=== PATIENT | female | born 1960 | race Caucasian/White ===

== ENCOUNTER 2018-04-07 13:21 | Emergency (ER) | payer MEDICARE, OTHER ==
[2018-04-07] MEDS ORDERED: Bacitracin Zinc 1 Packet ONE (14:26)
--- NOTE | 2018-04-07 14:33 | RAD ---
RIGHT FOREARM 2 VIEWS: HISTORY: Right arm injury. FINDINGS: Transverse fracture with minimal medial displacement of distal fragment involves the distal ulnar sha ft. Radius is intact. Mild degenerative changes of the elbow and wrist. IMPRESSION: Minimally displaced distal right ulnar shaft fracture. POS: REESE
== END 2018-04-07 15:20 | disposition home or self-care (01) ==
LOC: SCSER 13:21
DX: S52.601A Unspecified fracture of lower end of right ulna, initial encounter for closed fracture (principal); E11.9 Type 2 diabetes mellitus without complications; I10 Essential (primary) hypertension; E78.5 Hyperlipidemia, unspecified; F32.9 Major depressive disorder, single episode, unspecified; W19.XXXA Unspecified fall, initial encounter
CPT/HCPCS: 29125

== ENCOUNTER 2019-06-30 22:50 | Emergency (ER) | payer MEDICARE ==
[2019-06-30] MEDS ORDERED: Ketorolac Tromethamine 30 MG/ML VIAL ONE (23:33)
--- NOTE | 2019-06-30 23:40 | CT ---
CT Facial Bones WO Con HISTORY: Left-sided facial injury. COMPARISON: None. FINDINGS: The nasal bone and zygomatic arches appear intact. Pterygoid processes are also intact. The sinuses are clear. No air-fluid levels. No maxillary or orbital fractures. The mandible is intact. Condyles are in normal position. IMPRESSION: No CT evidence of fracture of the facial bones.
--- NOTE | 2019-06-30 23:42 | CT ---
CT Brain WO Con HISTORY: Head injury. COMPARISON: 02/09/2013 study. FINDINGS: There is some mild ventricular and sulcal prominence. There is decreased attenuation to the periventricular white matter. There are no signs of intracerebral hemorrhage or extra-axial fluid collections. The mastoid air cells and visualized sinuses appear clear. IMPRESSION: No acute intracranial abnormalities.
== END 2019-06-30 23:54 | disposition home or self-care (01) ==
LOC: SCSER 22:50
DX: H92.02 Otalgia, left ear (principal); R68.84 Jaw pain; E11.9 Type 2 diabetes mellitus without complications; I25.10 Atherosclerotic heart disease of native coronary artery without angina pectoris; I10 Essential (primary) hypertension; E78.5 Hyperlipidemia, unspecified; F32.9 Major depressive disorder, single episode, unspecified; Z79.4 Long term (current) use of insulin
CPT/HCPCS: 70450; 70486; 93005; 96372; J1885

== ENCOUNTER 2019-11-14 00:57 | Observation (INO) | payer MEDICARE ==
[2019-11-14 01:40] LABS: Hemoglobin 9.2 g/dL (12.0-16.0); Mean Corpuscular HGB CONC 31.8 g/dL (32.0-36.0); Mean Corpuscular Hemoglobin 24.6 pg (27.0-31.0); Mean Corpuscular Volume 77.3 fL (78.0-98.0); Mean Platelet Volume 7.4 fL (7.4-10.4); Platelet Count 471 thou/uL (130-400); RBC Distribution Width 13.6 % (11.5-14.5); Red Blood Cell (RBC) Count 3.73 mill/uL (4.20-5.40); White Blood Cell (WBC) Count 20.8 thou/uL (4.8-10.8)
[2019-11-14 01:54] LABS: ALT (SGPT) 13 U/L (8-55); AST (SGOT) 17 U/L (5-34); Albumin 3.6 g/dL (3.5-5.0); Alkaline Phosphatase 114 U/L (40-110); Anion Gap 17 mmol/L (10-20); BUN (Urea Nitrogen) 20 mg/dL (9.8-20.1); Bilirubin, Total 0.3 mg/dL (0.2-1.2); Calc. Creatinine Clearance 0 mL/min (70-130); Calcium 10.2 mg/dL (7.8-10.44); Carbon Dioxide 21 mmol/L (22-29); Chloride 95 mmol/L (98-107); Estimated GFR-MDRD 33; Globulin 4.2 g/dL (2.4-3.5); Potassium 3.9 mmol/L (3.5-5.1); Protein, Total 7.8 g/dL (6.0-8.3); Sodium 129 mmol/L (136-145)
[2019-11-14 01:58] LABS: Band 8 % (5-11); Hypochromia SLIGHT = 6-15 cells (100X) (0-5/hpf); Lymphocytes 6 % (21-51); MDiff Complete? YES; Microcytosis SLIGHT = 6-15 cells (100X) (0-5/hpf); Neutrophil 86 % (42-75); Platelet Morphology Comment Appears Increased
[2019-11-14 02:00] LABS: Glucose 46 mg/dL (70-105)
--- NOTE | 2019-11-14 03:55 | PDOC.FPRHP ---
- History of Present Illness Chief Complaint: AMS, hypoglycemia History of Present Illness: 59yo CF with h/o IDDMII with insulin pump, CAD s/p stent, HTN, HLD and polypharmacy presented to ED via EMS for AMS and hypoglycemia. History obtained primarily from at bedside as patient was drowsy and unable to answer full questioning. Per , they went to bed at 10pm in usual state of health , then around midnight he awoke to her having intermittent shaking episodes lasting a few seconds and unable to wake her from sleep. Called EMS and found her blood sugar was "low." Given amp of D10 and BG increased to 238 and AMS resolved. In the ED patient was able to converse with ERMD and nurse per report. Recheck of BG was 113. Had a recheck of BG and found to be 46 on CMP. Given PO food and recheck was still 44. Then given amp of D10 and started on D5NS @ 50cc/hr. At time of exam, pt was drowsy but arousable. Answering few questions with few words and following commands. GCS initially of 11 which increased to 14 upon further questioning. Pt denied any pain. states no recent illness, no fever/chills, skin lesions, n/v, diarrhea/constipation. States she checks BG at home and has been running "high" and instead has had issues with "high and low BP" which has lead to a few falls. Otherwise has been at her usual state of health. No access to other insulin at home other than pump. ED Course: EMS BG low, given D10 -> 238. Was 113 in ER. Decreased to 46 and 44. Given D10 amp and started on D50NS. - Allergies/Adverse Reactions Allergies Allergy/AdvReac Type Severity Reaction Status Date / Time divalproex sodium Allergy Unknown Verified 05/16/13 22:42 [From Depakote] hydrocodone bitartrate Allergy Unknown Verified 05/16/13 22:42 [From Vicodin] morphine Allergy Unknown Verified 05/16/13 22:42 - Home Medications Medication Instructions Recorded Confirmed Type Aspirin Chewable [Aspirin Chewable 81 mg PO DAILY #0 tab 05/21/13 11/14/19 Rx Tablet] Metoprolol Tartrate [Lopressor] 25 mg PO BID #0 tab 05/21/13 11/14/19 Rx Oxybutynin [Ditropan] 5 mg PO DAILY #0 tab 05/21/13 11/14/19 Rx Rosuvastatin [Crestor] 40 mg PO QAM #30 tab 05/21/13 11/14/19 Rx traMADol HCl [Ultram] 50 mg PO Q6H PRN #30 tab 07/13/13 11/14/19 Rx metFORMIN HCl 1,000 mg PO BID-WM #60 tab 07/14/13 11/14/19 Rx Amitriptyline HCl 50 mg PO HS 11/14/19 11/14/19 History Baclofen [Lioresal] 1 tab PO BID 11/14/19 11/14/19 History Celecoxib [Celebrex] 1 cap PO BID 11/14/19 11/14/19 History Cinnamon Bark [Cinnamon] 2 cap PO BID 11/14/19 11/14/19 History Colesevelam HCl [Welchol] 1,875 mg PO BID 11/14/19 11/14/19 History DULoxetine [Cymbalta] 60 mg PO DAILY 11/14/19 11/14/19 History Furosemide [Lasix] 20 mg PO DAILY 11/14/19 11/14/19 History Gabapentin [Neurontin] 800 mg PO TID 11/14/19 11/14/19 History Levocetirizine Dihydrochloride 5 mg PO DAILY 11/14/19 11/14/19 History [Xyzal] Levothyroxine Sodium [Synthroid] 75 mcg PO DAILY 11/14/19 11/14/19 History Levothyroxine Sodium [Synthroid] 200 mcg PO DAILY 11/14/19 11/14/19 History Losartan Potassium 100 mg PO DAILY 11/14/19 11/14/19 History Metoclopramide HCl 10 mg PO QID 11/14/19 11/14/19 History [place]-3 Fatty Acids/Fish Oil 2 cap PO DAILY 11/14/19 11/14/19 History [[place] 3 1,000 mg Softgel] Omeprazole 40 mg PO DAILY 11/14/19 11/14/19 History SUMAtriptan Succinate [Imitrex] 25 mg PO Q2HR PRN 11/14/19 11/14/19 History Semaglutide [Ozempic] 0.4 ml SC Q7DAYS 11/14/19 11/14/19 History Sucralfate [Carafate] 1 gm PO AC 11/14/19 11/14/19 History Zolpidem Tartrate [Ambien] 10 mg PO HS 11/14/19 11/14/19 History buPROPion HCl [Bupropion Xl] 300 mg PO DAILY 11/14/19 11/14/19 History - History PMHx:CAD s/p stent, DMII - on insulin pump, HTN, HLD, Depression PSHx: Carpal tunnel, hyst, back surgery, sinus surgery FHx: Father and siblings with DMII. Social: former smoker, 10py history but quit "a long time ago." No illicits or EtOH use. . - Review of Systems ROS unobtainable: due to mental status (some ROS obtained from ) General: denies: fever/chills, fatigue Eyes: denies: vision changes ENT: denies: nasal congestion, rhinorrhea Respiratory: denies: cough, congestion, shortness of breath Cardiovascular: denies: chest pain, palpitation, edema Gastrointestinal: denies: nausea, vomiting, diarrhea, constipation, abdominal pain Genitourinary: denies: incontinence, dysuria Skin: denies: rashes Neurological: reports: weakness - Vital signs BP: 108/64 HR: 91 RR: 19 Tmax: 97.9 Pox: 99% on RA Wt: 95kg - Physical Exam Constitutional: well developed, other (Initial GCS of 11, this increased to 14 with increased stimulation. Once more awake, was A/O x4 and able to answer questions with yes or no but easily falls back asleep during exam) HEENT: EOMI, conjunctiva clear, MMM, oropharynx clear Neck: supple, trachea midline Heart: RRR, normal S1/S2, no murmurs/rubs/gallops, pulses present, no edema Lungs: CTAB, no respiratory distress, good air movement, no rales/rhonchi, no wheezing Abdomen: soft, non-tender, bowel sounds present, no masses/distention Musculoskeletal: normal structure, other (moves all ext) Neurological: no focal deficit, CN II-XII intact, normal sensation Skin: no rash/lesions Heme/Lymphatic: no unusual bruising or bleeding FMR H&P: Results - Labs Result Diagrams: 11/14/19 01:31 11/14/19 01:31 Lab results: WBC 20.8 thou/uL (4.8-10.8) H 11/14/19 01:31 Hgb 9.2 g/dL (12.0-16.0) L 11/14/19 01:31 Hct 28.8 % (36.0-47.0) L 11/14/19 01:31 MCV 77.3 fL (78.0-98.0) L 11/14/19 01:31 Plt Count 471 thou/uL (130-400) H 11/14/19 01:31 Band Neuts % (Manual) 8 % (5-11) 11/14/19 01:31 Sodium 129 mmol/L (136-145) L 11/14/19 01:31 Potassium 3.9 mmol/L (3.5-5.1) 11/14/19 01:31 Chloride 95 mmol/L (98-107) L 11/14/19 01:31 Carbon Dioxide 21 mmol/L (22-29) L 11/14/19 01:31 BUN 20 mg/dL (9.8-20.1) 11/14/19 01:31 Creatinine 1.59 mg/dL (0.6-1.1) H 11/14/19 01:31 Glucose 46 mg/dL (70-105) L* 11/14/19 01:31 Calcium 10.2 mg/dL (7.8-10.44) 11/14/19 01:31 Total Bilirubin 0.3 mg/dL (0.2-1.2) 11/14/19 01:31 AST 17 U/L (5-34) 11/14/19 01:31 ALT 13 U/L (8-55) 11/14/19 01:31 Alkaline Phosphatase 114 U/L (40-110) H 11/14/19 01:31 B-Natriuretic Peptide 59.6 pg/mL (0-100) 11/14/19 01:31 Serum Total Protein 7.8 g/dL (6.0-8.3) 11/14/19 01:31 Albumin 3.6 g/dL (3.5-5.0) 11/14/19 01:31 - EKG Interpretation EKG: NSR, normal intervals, normal R wave progression, normal axis, no ST or T wave changes. - Radiology Interpretation Chest x-ray Status: image reviewed by me (no focal consolidation) FMR H&P: A/P - Problem List (1) Hypoglycemia Current Visit: Yes Status: Acute Code(s): E16.2 - HYPOGLYCEMIA, UNSPECIFIED (2) Acute metabolic encephalopathy Current Visit: Yes Status: Acute Code(s): G93.41 - METABOLIC ENCEPHALOPATHY (3) Diabetes mellitus Current Visit: Yes Status: Acute Code(s): E11.9 - TYPE 2 DIABETES MELLITUS WITHOUT COMPLICATIONS Qualifiers: Diabetes mellitus type: type 2 Diabetes mellitus correction insulin use: with correction use (4) HTN (hypertension) Current Visit: Yes Status: Acute Code(s): I10 - ESSENTIAL (PRIMARY) HYPERTENSION (5) CAD (coronary artery disease) Current Visit: Yes Status: Acute Code(s): I25.10 - ATHSCL HEART DISEASE OF [place] CORONARY ARTERY W/O ANG PCTRS - Plan 59yo CF with h/o IDDMII with insulin pump, CAD s/p stent, HTN, HLD and polypharmacy presented to ED via EMS for AMS and hypoglycemia. #Acute metabolic encephalopathy - suspected 2/2 hypoglycemia and polypharmacy - GCS 11 on initial exam, increased to 14 with stimulation - per nursing and ERMD report, mentation has waxed and waned since admission currently more drowsy but arousable - will hold sedating home medications and monitor closely - treat hypoglycemia as per below #Refractory Hypoglycemia - BG low per EMS, in ED 113 -> 46 -> 44 -> 130 post D10 - s/p amp D10 x2 - Will cont IVF of D5NS @ 100cc/hr - Hypoglycemic protocol with Q2h Accuchecks - Insulin pump turned off in ED, will keep off and monitor BG prior to readdition of insulin - Will check C-peptide and A1C - likely contributing to #1 #Hyponatremia - Na 129, suspect hypovolemic hyponatremia - Urine Na pending - Will provide gently hydration and monitor #Microcytic Anemia - Hb 9.2, MCV 77.3 - suspect iron def plus anemia chronic disease - will check iron studies and monitor, no s/s of acute blood loss #Leukocytosis and thombocytosis - WBC 20.8, Plt 471 - no s/s of acute infection, VSS and afebrile - Will order UA - likely 2/2 acute phase reactants and hemoconcentration - will monitor #EMY vs CKD III - Cr 1.59, no recent records to compare to baseline - provide gently hydration and monitor - likely underlying CKD but unsure staging #Polypharmacy - likely contributing to AMS - will hold sedating meds and suggest deescalation of medication with PCP upon discharge #DMII - will check A1C - cont metformin, holding insulin per above #HTN - monitor, cont home BP meds and adjust prn #Hypothyroidism - cont home synthroid, will check TSH PCP: CC - [facility] Code: Full Diet: CC IVF: D5NS @ 100cc/hr SCD: Lovenox Disposition/LOS: Admit to medical obs for refractory hypoglycemia and acute metabolic encephalopathy. Monitor BG, workup pending. Anticipate hospitalization < 48hrs pending clinical course. FMR H&P: [place] - Pertinent history 59 year old female that presents with refractory hypoglycemia. Patient went to bed around 22:00 and around 00:00 noted she started to "twitch". He tried to wake her up, but she was difficult to arouse. He called EMS. EMS reported a "low" reading on glucometer. Patient then got an amp of D50. Upon arrival, patient's BG in 200's. However, on CMP BG had gone back down to 40's. Patient noted to have an insulin pump, but ER physician evaluated pump and states last time insulin was given per pump records was around 15:00. She then turned off the pump. Patient has been relatively healthy. She has not had any recent illnesses. She has not had cough, congestion, N/V/D, chest pain or shortness of breath per the . Patient difficult to awaken, so history difficult to obtain from patient herself. Patient receives all of her treatment at [facility]. - Pertinent findings General: Difficult to arouse, Answers one questions before falling back to sleep. No acute distress HEENT: MMM Card: RRR, no murmurs Resp: CTA, witnessed apneic spells Abd: Soft, non-tender Ext: No cyanosis or edema Skin: Warm and dry Neuro: No appreciable focal deficits - Plan Date/Time: 11/14/19 0355 Marycruz Gross, have evaluated this patient and agree with findings/plan as outlined by internal investigator resident. Pertinent changes/additions are listed here. Refractory hypoglycemia -s/p 2 amps of D50, with glucose ranging from 40-200's. -Patient with insulin pump, which after review by ED physician last gave insulin at 15:00 on 11/14; pump turned off -Hold DM medications until hypoglycemic episode has resolved; may need to retitrate insulin regimen -Hypoglycemia protocol initiated -Q2h accuchecks until trend for BG established Acute metabolic encephalopathy -2/2 hypoglycemia -See plan as above -Will order UA with culture to rule out UTI as source given WBC 20 -Pt on a whole lot of medications that can cause sedation; recommend holding these until mental status back to baseline -EKG NSR Leukocytosis -Neutrophilia with no significant bandemia -No obvious source of infection, VSS, Afebrile -CXR WNL HTN -BP in low 100's systolic -Hold BP meds and call pharmacy for official med rec -Patient may need BP medication adjustments -She has had several falls recently Hypothyroidism -Pt with 2 different doses of levo which are drastically different -Will hold thyroid medication until we can get official med rec -Will check TSH HLD -Continue home medications DM type II -On insulin pump, GLP-1, and metformin; hold until hypoglycemic episode resolves -Needs thorough med rec -Pump currently off; last gave insulin at 15:00 per review by ED physician -Will check c-peptide to see if converted EMY vs. CKD -Trend BMP Hyponatremia -Na 128 -Will start on D5NS -Trend Microcytic anemia -Iron studies -B12, RBC folate Depression -Continue home medications CAD s/p stent -Continue home medications Suspect CANDICE -Obese, witnessed apneic spells DVT PPX: Lovenox Dispo: Obs on medical unit. Anticipate LOS 24-48 hours. Addendum - Attending - Attending Attestation Date/Time: 11/14/19 7601 I personally evaluated the patient and discussed the management with Dr. Aquino I agree with the History, Examination, Assessment and Plan documented above with any addition or exceptions noted below. 59 yo WF PMH IDDM who presnted via EMS with a CC of AMS. Found to have low glucose too low to detect and given several amps of D50 by EMS. In ER glucose still low in spite of IV glucose therapy. patient is using insulin pump and has recently had it updated. review of pump data shows only 6 units given yesterday. Denies changes in diet. Labs otherwise unremarkable. observation for refractory hypoglycemia. D/C insulin pump. Once glucose WNL will restart SC lantus and SSI. I suspect there may be a malfunction with her insulin pump. Would recommend not resuming pump until discussing with [employer]/ presser automatic. Check cortisol level since hyponatremic to r/o adrenal etiology. Likely d/c tomorrow.
[2019-11-14] MEDS ORDERED: Dextrose 50% Abboject 50 ML SYRINGE SLOW IVP PRN ×2 (04:09→10:10)
[2019-11-14] MEDS ORDERED: Dextrose 5% in Water 1,000 ML IV PRN ×2 (04:09→10:10)
[2019-11-14] MEDS ORDERED: Dextrose 5 % And 0.9 % NaCl 1,000 ML IV SCH (04:30)
[2019-11-14 05:00] VITALS: BMI 35.6
[2019-11-14 06:32] LABS: Hemoglobin A1c 7.7 % (4.0-6.0)
[2019-11-14 07:11] LABS: Ferritin 226.16 ng/mL (10-291); Thyroid Stimulating Hormone 0.0135 uIU/mL (0.35-4.94)
--- NOTE | 2019-11-14 07:59 | RAD ---
CHEST 1 VIEW: INDICATION: Hypoglycemia. COMPARISON: Prior exam dated 07/05/2013 and 09/29/2014. FINDINGS: Lungs are clear. Heart size is normal. No acute osseous abnormality is evident. No pleural effusio n or pneumothorax is evident. Calcified granuloma in the right lung is stable-appearing. IMPRESSION: No acute cardiopulmonary abnormality. POS: BH
[2019-11-14] MEDS ORDERED: Colesevelam Hcl [Welchol] 1,875 MG PO SCH (09:00)
[2019-11-14] MEDS: Bupropion 150 MG XL TAB PO SCH (10:03)
[2019-11-14] MEDS: metFORMIN 500 MG TAB PO SCH ×2 (10:03→17:07)
[2019-11-14] MEDS: Enoxaparin Sodium 40 MG/0.4 ML SYRINGE SC SCH (10:03)
[2019-11-14] MEDS: Aspirin Chewable 81 MG TAB PO SCH (10:04)
[2019-11-14] MEDS: Rosuvastatin 20 MG TAB PO SCH (10:04)
[2019-11-14] MEDS: DULoxetine 60 MG CAP PO SCH (10:04)
[2019-11-14] MEDS ORDERED: Insulin Glargine 50 UNITS in Pre-Filled Syringe 1 EACH SC SCH (10:45)
[2019-11-14 11:22] LABS: Bacteria/HPF 4+ HPF (None Seen); Bilirubin Negative (Negative); Blood, Urine 1+ (Negative); Clarity Turbid (Clear); Glucose, Urine (Dipstick) 50 mg/dL (Negative); Leukocyte 500 Leu/uL (Negative); Nitrite Negative (Negative); Protein, Urine (Dipstick) 30 mg/dL (Neg-Trace); RBC/HPF 0-3 HPF (0-3); Squamous Epithelial 0-3 HPF (0-3); Urobilinogen Normal mg/dL (Less than 2); WBC/HPF Greater than 50 HPF (0-3)
[2019-11-14] MEDS ORDERED: Cyanocobalamin (Vitamin B-12) 1,000 MCG TAB PO SCH (11:45)
[2019-11-14] MEDS: HumaLOG 300 UNITS/3 ML VIAL SC PRN ×2 (11:55→19:40)
[2019-11-14] MEDS ORDERED: HumaLOG 300 UNITS/3 ML VIAL SC SCH ×2 (13:45→17:15)
[2019-11-14] MEDS ORDERED: Lactated Ringer's 1,000 ML IV SCH (17:15)
[2019-11-15] MEDS: HumaLOG 300 UNITS/3 ML VIAL SC PRN ×5 (03:34→16:00)
[2019-11-15 05:39] LABS: #Eosinphils 0.2 thou/uL (0.0-0.7); #Lymphocytes 1.6 thou/uL (1.20-3.40); #Monocytes 1.1 thou/uL (0.11-0.59); #Neutrophils 9.7 thou/uL (1.40-6.50); %Basophils 0.2 % (0.0-1.0); %Eosinophils 1.9 % (0.0-10.0); %Lymphocytes 12.4 % (21.0-51.0); %Monocytes 8.4 % (0.0-10.0); %Neutrophils 77.1 % (42.0-75.0); Hemoglobin 8.4 g/dL (12.0-16.0); Mean Corpuscular HGB CONC 32.3 g/dL (32.0-36.0); Mean Corpuscular Hemoglobin 24.9 pg (27.0-31.0); Mean Corpuscular Volume 77.2 fL (78.0-98.0); Mean Platelet Volume 7.3 fL (7.4-10.4); Platelet Count 396 thou/uL (130-400); RBC Distribution Width 13.8 % (11.5-14.5); Red Blood Cell (RBC) Count 3.38 mill/uL (4.20-5.40); White Blood Cell (WBC) Count 12.5 thou/uL (4.8-10.8)
[2019-11-15 06:07] LABS: ALT (SGPT) 18 U/L (8-55); AST (SGOT) 19 U/L (5-34); Albumin 3.1 g/dL (3.5-5.0); Alkaline Phosphatase 103 U/L (40-110); Anion Gap 14 mmol/L (10-20); BUN (Urea Nitrogen) 18 mg/dL (9.8-20.1); Bilirubin, Total 0.2 mg/dL (0.2-1.2); Calc. Creatinine Clearance 66 mL/min (70-130); Calcium 9.5 mg/dL (7.8-10.44); Carbon Dioxide 23 mmol/L (22-29); Chloride 99 mmol/L (98-107); Estimated GFR-MDRD 39; Globulin 3.7 g/dL (2.4-3.5); Glucose 255 mg/dL (70-105); Potassium 4.6 mmol/L (3.5-5.1); Protein, Total 6.8 g/dL (6.0-8.3); Sodium 131 mmol/L (136-145)
--- NOTE | 2019-11-15 06:35 | PDOC.FM ---
- Subjective Subjective: Pt is doing well today. She left a message with her perianesthesia rn yesterday. She has not had any more episodes of hypoglycemia, shaking. She has had hyperglycemia requiring fast acting insulin. She denies fever, chills, abdominal pain, chest pain, diaphoresis but did become nauseated. - Objective Vital Signs & Weight: Vital Signs (12 hours) Temp Pulse Resp BP Pulse Ox 11/15/19 03:26 98.4 F 95 18 125/71 95 11/14/19 23:22 99.8 F H 101 H 17 148/69 H 96 11/14/19 19:13 98.7 F 98 19 129/79 91 L Weight Weight 96.978 kg Result Diagrams: 11/15/19 05:20 11/15/19 05:20 Phys Exam - Physical Examination Constitutional: NAD HEENT: PERRLA, moist MMs Neck: no JVD, full ROM Respiratory: no wheezing, clear to auscultation bilateral Cardiovascular: RRR, no significant murmur Gastrointestinal: soft, non-tender, no distention Musculoskeletal: no edema, pulses present Dx/Plan (1) Acute metabolic encephalopathy Code(s): G93.41 - METABOLIC ENCEPHALOPATHY Status: Acute (2) CAD (coronary artery disease) Code(s): I25.10 - ATHSCL HEART DISEASE OF [place] CORONARY ARTERY W/O ANG PCTRS Status: Acute (3) Diabetes mellitus Code(s): E11.9 - TYPE 2 DIABETES MELLITUS WITHOUT COMPLICATIONS Status: Acute Qualifiers: Diabetes mellitus type: type 2 Diabetes mellitus residential insulin use: with residential use (4) HTN (hypertension) Code(s): I10 - ESSENTIAL (PRIMARY) HYPERTENSION Status: Acute (5) Hypoglycemia Code(s): E16.2 - HYPOGLYCEMIA, UNSPECIFIED Status: Acute - Plan Plan: 59yo CF with h/o IDDMII with insulin pump, CAD s/p stent, HTN, HLD and polypharmacy presented to ED via EMS for AMS and hypoglycemia. #Acute metabolic encephalopathy - suspected 2/2 hypoglycemia and polypharmacy - GCS 11 on initial exam, increased to 14 with stimulation - per nursing and ERMD report, mentation has waxed and waned since admission currently more drowsy but arousable - hold sedating medications for now, will discharge without amitriptyline; she needs a sleep study in the outpt setting - treat hypoglycemia as per below #Refractory Hypoglycemia - q4h checks - required ~90 fast acting insulin, 50 U lantus - Increase Lantus to 70 U daily, discharge likely today #Hyponatremia - Na 131, corrected for hyperglycemia 133 - Will provide gently hydration and monitor #Microcytic Anemia - Hb 9.2, MCV 77.3 - suspect iron def plus anemia chronic disease #Leukocytosis and thombocytosis - WBC 20.8, Plt 471 - no s/s of acute infection, VSS and afebrile - Will order UA - likely 2/2 acute phase reactants and hemoconcentration - will monitor #EMY vs CKD III - Cr 1.59, no recent records to compare to baseline - provide gently hydration and monitor - likely underlying CKD but unsure staging #Polypharmacy - likely contributing to AMS - will hold sedating meds and suggest deescalation of medication with PCP upon discharge #DMII - a1c 7.7 - cont metformin, holding insulin per above #HTN - monitor, cont home BP meds and adjust prn #Hypothyroidism - continue synthroid PCP: CC - [facility] Code: Full Diet: CC IVF: SL SCD: Lovenox Disposition/LOS: Likely discharge today with close follow up Addendum - Attending - Attending Attestation Date/Time: 11/15/19 1320 I personally evaluated the patient and discussed the management with Dr. Webb I agree with the History, Examination, Assessment and Plan documented above with any addition or exceptions noted below. Patient to contact [employer] to send new pump. D/C on lantus 70U QD and humalog 15 U premeal. f/u endocrine w/n 1 week. hypoglycemic episodes resolved.
[2019-11-15] MEDS ORDERED: Ondansetron ORAL SOLN. 4 MG/5 ML UDCUP PO PRN (08:48)
[2019-11-15] MEDS ORDERED: Ondansetron ODT 4 MG TAB PO PRN (08:54)
[2019-11-15] MEDS ORDERED: Cyanocobalamin (Vitamin B-12) 1,000 MCG TAB PO SCH (09:00)
[2019-11-15] MEDS ORDERED: Insulin Glargine 50 UNITS in Pre-Filled Syringe 1 EACH SC SCH (09:00)
[2019-11-15] MEDS: metFORMIN 500 MG TAB PO SCH (10:38)
[2019-11-15] MEDS: Bupropion 150 MG XL TAB PO SCH (10:39)
[2019-11-15] MEDS: DULoxetine 60 MG CAP PO SCH (10:39)
[2019-11-15] MEDS: Aspirin Chewable 81 MG TAB PO SCH (10:40)
[2019-11-15] MEDS: Rosuvastatin 20 MG TAB PO SCH (10:40)
[2019-11-15] MEDS: Enoxaparin Sodium 40 MG/0.4 ML SYRINGE SC SCH (10:40)
[2019-11-15 16:44] VITALS: BP 131/59; TEMP 98.8
--- NOTE | 2019-11-17 12:04 | EKG ---
Test Reason : Blood Pressure : / mmHG Vent. Rate : 092 BPM Atrial Rate : 092 BPM P-R Int : 166 ms QRS Dur : 094 ms QT Int : 380 ms P-R-T Axes : 000 007 019 degrees QTc Int : 469 ms Normal sinus rhythm Minimal voltage criteria for LVH, may be normal variant Prolonged QT Abnormal ECG Confirmed by LUISA BOB ([id number]), newspaper photo editor IRISH CUELLO ([id number]) on 11/17/2019 12:04:34 PM Referred By: Confirmed By:LUISA BOB
--- NOTE | 2019-11-19 11:30 | DIS ---
DATE OF ADMISSION: 11/14/2019 DATE OF DISCHARGE: 11/15/2019 RESIDENT: Nikita Webb DO ADMITTING ATTENDING: Josr Haynes MD DISCHARGE ATTENDING: Josr Haynes MD CONSULTS: None. PRIMARY DIAGNOSES: 1. Acute metabolic encephalopathy. 2. Hypoglycemia. 3. Hyponatremia. SECONDARY DIAGNOSES: 1. Hypothyroidism. 2. Hypertension. 3. Type 2 diabetes. 4. Polypharmacy. 5. Chronic kidney disease 3. 6. Microcytic anemia. DISCHARGE MEDICATIONS: 1. Aspirin 81 mg p.o. daily. 2. Metoprolol p.o. b.i.d. 3. Oxybutynin 5 mg p.o. daily. 4. Crestor 40 mg p.o. q.a.m. 5. Tramadol 50 mg p.o. q.6 hours p.r.n. pain. 6. Metformin 1000 mg p.o. b.i.d. 7. Baclofen 1 tab p.o. b.i.d. 8. Bupropion 300 mg p.o. daily. 9. Ambien 10 mg p.o. at bedtime. 10. Sumatriptan 25 mg p.o. q.2 hours p.r.n. migraine. 11. Omeprazole 40 mg p.o. daily. 12. [place]-3 fatty acids two caps p.o. daily. 13. Metoclopramide 10 mg p.o. q.i.d. 14. Levothyroxine 275 mg p.o. daily. 15. Gabapentin 800 mg p.o. t.i.d. 16. Lasix 20 mg p.o. daily. 17. Cymbalta 60 mg p.o. daily. 18. Colesevelam 1875 mg p.o. b.i.d. 19. Losartan 100 mg p.o. daily. 20. Xyzal 5 mg p.o. daily. 21. Cinnamon 500 mg two caps p.o. b.i.d. 22. Celebrex 200 mg p.o. b.i.d. 23. Semaglutide 0.4 ml subcu every 7 days. 24. Carafate 1 g p.o. a.c. 25. Vitamin B12 of 1000 mcg p.o. daily. 26. Lantus 70 units subcu daily. 27. Insulin lispro 15 units t.i.d. with meals. 28. Pen needles. DISCONTINUED MEDICATIONS: 1. Amitriptyline 50 mg p.o. at bedtime. 2. Insulin pump. HISTORY OF PRESENT ILLNESS/HOSPITAL COURSE: Lupis Parsons is a 59-year-old female with past medical history significant for type 2 diabetes requiring insulin pump , coronary artery disease status post stent, hypertension, hyperlipidemia, and polypharmacy, who presented to the emergency department for altered mental status and hypoglycemia. She was initially found to be drowsy at bedside by her and unable to answer questions in full. They went to bed at 10:00 p.m. and she was in her usual state of health. Around midnight, he woke to Ms. Parsons having intermittent shaking episodes lasting a few seconds and he was unable to wake up from her sleep. He called EMS and she was found to have low blood sugars. She was given an amp of D10. Her blood sugar increased to 238, and her altered mental status resolved. Blood glucose did end up dropping down to 46 in the emergency department. She was given another amp of D10 and started on D5 normal saline at 50 mL/h. Once admitted to the floor, she was discontinued from using her insulin pump. Her insulin pump likely malfunctioned as she was only noted to be given herself 5 units of long-acting insulin through the whole day prior to her admission. Her previous readings have noted her to have between 90 and 125 units of insulin, approximately 45% of that long-acting and 55% of that short-acting. The patient's blood sugars were controlled with Lantus and fast-acting insulin. [facility] to plan for switching out her insulin device. She also contacted her slab conditioner supervisor and we advised to follow up with the slab conditioner supervisor at the end of the week or beginning of the next week, same for her primary care physician. She was discharged with Lantus 70 units daily and 15 units of lispro to cover her blood glucose. She was still running a little high in terms of her blood sugars on discharge, but I would prefer for them to be high than low. We advised the patient to continue to check her blood sugars. The patient was also on multiple medications that can cause altered mental status. We did review these and subsequently discontinued her amitriptyline. She was unsure why she was taking this medication. We advised her to follow up with her primary care physician to further reconcile her medications. She did also endorse episodes of orthostatic hypotension, which can be a side effect from amitriptyline. The patient was found to have low vitamin B12, so we started her on supplementation. She was also found to have low vitamin D and started her on supplementation. DISPOSITION: Stable. DISCHARGE INSTRUCTIONS: 1. Location: [facility]. 2. Diet: Diabetic diet. 3. Activity: Ad simona. 4. Follow up with Endocrinology within 5 days. 5. Follow up with her primary care provider within 5 days. 6. Followup with [employer] to replace her device. Job ID: [id number]
== END 2019-11-15 17:08 | disposition home or self-care (01) ==
LOC: ERS 00:57 → T4-B 03:51
PROVIDERS: ADMIT Family Medicine; ATTEND Family Medicine
DX: E11.649 Type 2 diabetes mellitus with hypoglycemia without coma (principal); G93.41 Metabolic encephalopathy; E87.1 Hypo-osmolality and hyponatremia; E03.9 Hypothyroidism, unspecified; I12.9 Hypertensive chronic kidney disease with stage 1 through stage 4 chronic kidney disease, or unspecified chronic kidney disease; E11.22 Type 2 diabetes mellitus with diabetic chronic kidney disease; N18.3 Chronic kidney disease, stage 3 (moderate); I25.10 Atherosclerotic heart disease of native coronary artery without angina pectoris; E78.5 Hyperlipidemia, unspecified; F32.9 Major depressive disorder, single episode, unspecified; D50.9 Iron deficiency anemia, unspecified; D72.829 Elevated white blood cell count, unspecified; D47.3 Essential (hemorrhagic) thrombocythemia; Z87.891 Personal history of nicotine dependence; Z79.4 Long term (current) use of insulin; Z79.82 Long term (current) use of aspirin; Z79.899 Other long term (current) drug therapy; Z88.5 Allergy status to narcotic agent; Z88.8 Allergy status to other drugs, medicaments and biological substances; Z96.41 Presence of insulin pump (external) (internal)
CPT/HCPCS: 71045; 80053; 81001; 82306; 82533; 82570; 82607; 82728; 82962 ×2; 83036; 83550; 83880; 84300; 84439; 84484; 84681; 85025; 93005; 96361; 96372 ×2; 96374; 97116 ×2; 97139 ×5; 99285; G0378 ×3; 36415; 36416; 84443; J1650; J1815; Q0162